=== PATIENT | female | born 1970 | race Caucasian/White ===

== ENCOUNTER → 2018-07-06 13:39 | Outpatient (CLI) | payer BC, SELFPAY ==
[2018-07-06 17:15] LABS: Chlamydia Trachomatis by PCR Negative (Negative); Neisserai gonorrhoeae by PCR Negative (Negative); Probe Check PASS; Sample Adequacy Control PASS; Specimen Processing Control PASS
[2018-07-11 11:13] LABS: HPV Reflexed? NOT INDICATED
== END ==
PROVIDERS: Visit Provider Obstetrics & Gynecology
DX: Z12.4 Encounter for screening for malignant neoplasm of cervix (principal); Z11.3 Encounter for screening for infections with a predominantly sexual mode of transmission
CPT/HCPCS: 87491; 87591; 87624; 88175; G0145

== ENCOUNTER → 2018-08-23 08:31 | Outpatient (CLI) | payer BC, SELFPAY ==
--- NOTE | 2018-08-23 08:38 | BI_ITS ---
MAMMOGRAPHY - BILATERAL SCREENING REASON FOR EXAM: Female, 48 years old. Routine annual screening examination. PERTINENT HISTORY: Non-contributory. TECHNIQUE: Digital bilateral breast jaswinder (3D mammographic acquisition) in the CC and MLO projections. 2-D mediolateral oblique (MLO) and craniocaudad (CC) views of both breasts were obtained. CAD: Full Field Digital Mammography with Computer Added Detection was performed. COMPARISON: Comparison is made with prior study dated September 21, 2016 and September 02, 2015. FINDINGS: Breast Composition: The breasts are heterogeneously dense, which may obscure small masses. There are no dominant masses or suspicious calcifications. Stable 6.5 mm lymph node in the left axilla. No other significant abnormalities are identified. There has been no significant change since the prior study. BI/SCREENING MAMM (CAD), BILAT IMPRESSION: Stable bilateral screening mammogram. Yearly follow-up mammogram recommended. (A) ASSESSMENT CATEGORY: BIRADS Category 2: Benign. A letter regarding these results will be sent to the patient by the facility within 30 days. Approximately 10% of breast cancers are not detected by mammography. A normal mammogram should not delay biopsy of a clinically suspicious abnormality. [id number] Electronically Signed: Sukhjinder Carey MD at 10:06 EST , Service support ,
== END ==
PROVIDERS: Referring Provider Obstetrics & Gynecology; Visit Provider Obstetrics & Gynecology
DX: Z12.31 Encounter for screening mammogram for malignant neoplasm of breast (principal)
CPT/HCPCS: 77063; 77067

== ENCOUNTER → 2018-10-05 16:13 | Outpatient (CLI) | payer BC, SELFPAY ==
[2018-10-05 17:50] LABS: Absolute Neutrophil Count 6.6 X10^3/uL (2.0-7.7); Basophil# 0.04 X10^3/uL; Basophil% 0.4 % (0-1); Eosinophil# 0.08 X10^3/uL; Eosinophils% 0.8 % (0-5); Hematocrit 41.1 % (37-47); Hemoglobin 13.6 g/dl (12.0-15.0); Lymphocyte % 22.8 % (19-41); Mean Corp Hgb Conc 33.1 g/gl (32-36); Mean Corpuscular Hgb 27.6 pg (27.0-32.0); Mean Corpuscular Volume 83.4 fL (81-99); Monocyte# 0.67 X10^3/uL; Neutrophil # 6.59 X10^3/uL (2.7-7.7); Neutrophil % 68.4 % (47-70); Platelet Count 361 K/mm3 (150-450); RBC Distribution Width CV 12.6 % (11.6-14.6); RBC Distribution Width SD 37.7 fl (35.1-43.9); Red Blood Count 4.93 M/mm3 (4.2-5.4); White Blood Count 9.6 K/mm3 (4.4-11.0)
[2018-10-05 18:10] LABS: Anion Gap 8 (5-15); BUN 12 mg/dL (7-18); BUN/Creat Ratio 14.7 RATIO (10-20); Chloride 106 mmol/L (98-107); Cholesterol 161 mg/dL (200); Creatinine, Serum 0.82 mg/dL (0.55-1.02); EST Glomerular Filtration Rate 80 mL/min (>60); Est Glom Filt Rate - Afr Amer 97 mL/min (>60); Glucose 91 mg/dL (74-106); High Density Lipoprotein 33 mg/dL; Potassium 4.2 mmol/L (3.5-5.1); Sodium Level 142 mmol/L (136-145); Thyroid Stim Hormone (TSH) 2.22 uIU/mL (0.358-3.74); Triglycerides 166 mg/dL; Very Low Density Lipoprotein 33 mg/dL (5-40)
[2018-10-05 18:36] LABS: Differential Indicated SCAN CRITERIA MET; POSITIVE COUNT NO; POSITIVE DIFFERENTIAL NO; POSITIVE MORPHOLOGY YES; Platelet Estimate ADEQUATE (ADEQ); Red Cell Morphology NORM C+C NORMAL (NORM C&C)
== END ==
PROVIDERS: Family Provider Family Medicine; PCP Family Medicine; Referring Provider Family Medicine; Visit Provider Family Medicine
DX: I10 Essential (primary) hypertension (principal); R53.83 Other fatigue
CPT/HCPCS: 36415; 80048; 80061; 84443; 85025

== ENCOUNTER → 2019-01-16 14:07 | Outpatient (CLI) | payer BC, SELFPAY ==
[2019-01-16 15:52] LABS: Anion Gap 5 (5-15); BUN 13 mg/dL (7-18); BUN/Creat Ratio 14.9 RATIO (10-20); Calcium,Total 9.9 mg/dL (8.5-10.1); Chloride 105 mmol/L (98-107); Creatinine, Serum 0.87 mg/dL (0.55-1.02); EST Glomerular Filtration Rate 74 mL/min (>60); Est Glom Filt Rate - Afr Amer 90 mL/min (>60); Glucose 116 mg/dL (74-106); Potassium 3.9 mmol/L (3.5-5.1); Sodium Level 138 mmol/L (136-145)
== END ==
PROVIDERS: Family Provider Family Medicine; PCP Family Medicine; Referring Provider Family Medicine; Visit Provider Family Medicine
DX: I10 Essential (primary) hypertension (principal)
CPT/HCPCS: 36415; 80048

== ENCOUNTER → 2019-08-13 08:28 | Outpatient (CLI) | payer BC, SELFPAY ==
[2019-08-13 10:30] LABS: Vitamin D,25 Hydroxy 22.2 ng/mL (29.95-100.01)
[2019-08-13 10:41] LABS: BUN 12 mg/dL (7-18); BUN/Creat Ratio 12.7 RATIO (10-20); Calcium,Total 10.3 mg/dL (8.5-10.1); Chloride 109 mmol/L (98-107); Cholesterol 214 mg/dL (200); Creatinine, Serum 0.94 mg/dL (0.55-1.02); EST Glomerular Filtration Rate 68 mL/min (>60); Est Glom Filt Rate - Afr Amer 82 mL/min (>60); Glucose 103 mg/dL (74-106); Potassium 4.3 mmol/L (3.5-5.1); Sodium Level 142 mmol/L (136-145); Triglycerides 116 mg/dL
[2019-08-13 10:42] LABS: Anion Gap 5 (5-15); High Density Lipoprotein 40 mg/dL; Thyroid Stim Hormone (TSH) 3.38 uIU/mL (0.358-3.74); Very Low Density Lipoprotein 23 mg/dL (5-40)
== END ==
PROVIDERS: PCP Family Medicine; Visit Provider Family Medicine
DX: Z00.00 Encounter for general adult medical examination without abnormal findings (principal)
CPT/HCPCS: 36415; 80048; 80061; 82306; 84443

== ENCOUNTER → 2020-09-12 09:08 | Outpatient (CLI) | payer OTHER, SELFPAY ==
[2020-09-12 10:48] LABS: Vitamin D,25 Hydroxy 35.3 ng/mL
[2020-09-12 11:00] LABS: Anion Gap 5 (5-15); BUN 12 mg/dL (7-18); Calcium,Total 9.7 mg/dL (8.5-10.1); Chloride 110 mmol/L (98-107); Cholesterol 217 mg/dL (200); Creatinine, Serum 1.09 mg/dL (0.55-1.02); EST Glomerular Filtration Rate 57 mL/min (>60); Est Glom Filt Rate - Afr Amer 69 mL/min (>60); Free T3 2.7 pg/mL (2.18-3.98); Glucose 103 mg/dL (74-106); High Density Lipoprotein 43 mg/dL; Potassium 4.4 mmol/L (3.5-5.1); Sodium Level 140 mmol/L (136-145); T4 Total, Thyroxin 6.3 ug/dL (4.8-13.9); Thyroid Stim Hormone (TSH) 3.09 uIU/mL (0.358-3.74); Triglycerides 129 mg/dL; Very Low Density Lipoprotein 26 mg/dL (5-40)
== END ==
PROVIDERS: PCP Family Medicine; Referring Provider Family Medicine; Visit Provider Family Medicine
DX: Z00.00 Encounter for general adult medical examination without abnormal findings (principal); E56.9 Vitamin deficiency, unspecified; L65.9 Nonscarring hair loss, unspecified
CPT/HCPCS: 36415; 80048; 80061; 82306; 84436; 84443; 84481

== ENCOUNTER → 2020-09-15 14:45 | Outpatient (CLI) | payer OTHER, SELFPAY ==
[2020-09-21 20:40] LABS: HPV Reflexed? NOT INDICATED
== END ==
PROVIDERS: PCP Family Medicine; Visit Provider Obstetrics & Gynecology
DX: Z12.4 Encounter for screening for malignant neoplasm of cervix (principal)
CPT/HCPCS: 88175; G0145

== ENCOUNTER → 2020-09-17 10:41 | Outpatient (CLI) | payer OTHER, SELFPAY ==
--- NOTE | 2020-09-17 10:46 | BI_ITS ---
MAMMOGRAPHY - BILATERAL SCREENING REASON FOR EXAM: Female, 50 years old. Routine annual screening examination. PERTINENT HISTORY: Mother with breast cancer. TECHNIQUE: Digital bilateral breast brayan (3D mammographic acquisition) in the CC and MLO projections. 2-D mediolateral oblique (MLO) and craniocaudad (CC) views of both breasts were obtained. CAD: Full Field Digital Mammography with Computer Added Detection was performed. COMPARISON: Comparison is made with prior study 06/22/2019 and 09/21/2016. FINDINGS: Breast Composition: The breasts are heterogeneously dense, which may obscure small masses. There are no dominant masses or suspicious calcifications. Stable 6.5 mm benign appearing lymph node in the left axilla. No other significant abnormalities are identified. There has been no significant change since the prior study. BI/SCRN MAMM (CAD)W/BRAYAN BILAT IMPRESSION: Stable bilateral screening mammogram. Yearly follow-up mammogram recommended. (A) ASSESSMENT CATEGORY: BIRADS Category 2: Benign. A letter regarding these results will be sent to the patient by the facility within 30 days. Approximately 10% of breast cancers are not detected by mammography. A normal mammogram should not delay biopsy of a clinically suspicious abnormality. [id number] Electronically Signed: Sukhjinder Carey MD at 12:47 EDT , Service support ,
== END ==
PROVIDERS: PCP Family Medicine; Referring Provider Family Medicine; Visit Provider Family Medicine
DX: Z12.31 Encounter for screening mammogram for malignant neoplasm of breast (principal)
CPT/HCPCS: 77063; 77067

== ENCOUNTER → 2020-12-30 12:20 | Outpatient (CLI) | payer OTHER, SELFPAY ==
--- NOTE | 2020-12-30 12:23 | RAD_ITS ---
STUDY: X-RAY - LUMBOSACRAL SPINE REASON FOR EXAM: Female, 50 years old. Low back pain TECHNIQUE: 7 view(s) of the lumbosacral spine were obtained. COMPARISON: None FINDINGS: Normal lumbar lordosis. There is a mild dextroscoliosis of the lumbar spine. There is normal alignment of the vertebrae. Normal vertebral bodies and endplates. Mild disc space narrowing throughout the lumbar spine. Normal bilateral sacral ala, sacroiliac joints, and visualized sacrum. Normal visualized soft tissue structures. No instability on the flexion or extension views RAD/L/S Spine w Bend Min 6 Vw IMPRESSION: Mild degenerative changes with a dextroscoliosis. No demonstrated fracture or instability. Electronically Signed: Colby Zapata MD at 17:14 EDT , Service support ,
== END ==
PROVIDERS: PCP Family Medicine; Referring Provider Nurse Practitioner Family; Visit Provider Nurse Practitioner Family
DX: M54.5 Low back pain (principal)
CPT/HCPCS: 72114

== ENCOUNTER → 2022-07-26 | Outpatient (CLI) | payer BC, SELFPAY ==
--- NOTE | 2022-07-26 15:55 | BI_ITS ---
MAMMOGRAPHY - BILATERAL SCREENING REASON FOR EXAM: Female, 52 years old. Routine annual screening examination. PERTINENT HISTORY: Mother with breast cancer. TECHNIQUE: Digital bilateral breast brayan (3D mammographic acquisition) in the CC and MLO projections. 2-D mediolateral oblique (MLO) and craniocaudad (CC) views of both breasts were obtained. CAD: Full Field Digital Mammography with Computer Added Detection was performed. COMPARISON: Comparison is made with prior study dated 09/17/2020 and 08/23/2018. FINDINGS: Breast Composition: The breasts are heterogeneously dense, which may obscure small masses. There are no dominant masses or suspicious calcifications. Stable 6.5 mm benign-appearing lymph node in the left axilla. No other significant abnormalities are identified. There has been no significant change since the prior study. BI/SCRN MAMM (CAD)W/BRAYAN BILAT IMPRESSION: Stable bilateral screening mammogram. Yearly follow-up mammogram recommended. (A) ASSESSMENT CATEGORY: BIRADS Category 2: Benign. A letter regarding these results will be sent to the patient by the facility within 30 days. Approximately 10% of breast cancers are not detected by mammography. A normal mammogram should not delay biopsy of a clinically suspicious abnormality. [id number] Electronically Signed: Sukhjinder Carey MD at 7:54 EST ,
== END | disposition home or self-care (01) ==
LOC: OPBI 15:53
PROVIDERS: PCP Family Medicine; Visit Provider Student in an Organized Health Care Education/Training Program
DX: Z12.31 Encounter for screening mammogram for malignant neoplasm of breast (principal); Z80.3 Family history of malignant neoplasm of breast
CPT/HCPCS: 77063; 77067

== ENCOUNTER 2022-09-26 16:34 | Outpatient (CLI) | payer BC, SELFPAY ==
[2022-09-26 18:41] LABS: Anion Gap 8 (5-15); BUN 14 mg/dL (7-18); BUN/Creat Ratio 16.1 RATIO (10-20); Calcium,Total 10.4 mg/dL (8.5-10.1); Chloride 104 mmol/L (98-107); Cholesterol 203 mg/dL (200); Creatinine, Serum 0.87 mg/dL (0.55-1.02); EST Glomerular Filtration Rate 73 mL/min (>60); Est Glom Filt Rate - Afr Amer 89 mL/min (>60); Glucose 99 mg/dL (74-106); High Density Lipoprotein 37 mg/dL; Potassium 3.7 mmol/L (3.5-5.1); Sodium Level 136 mmol/L (136-145); Triglycerides 194 mg/dL; Very Low Density Lipoprotein 39 mg/dL (5-40)
== END 2022-09-26 23:59 | disposition home or self-care (01) ==
LOC: MFPLAB 16:36
PROVIDERS: PCP Family Medicine; Visit Provider Family Medicine
DX: I10 Essential (primary) hypertension (principal)
CPT/HCPCS: 36415; 80048; 80061

== ENCOUNTER → 2023-09-12 | Outpatient (CLI) | payer BC, SELFPAY ==
[2023-09-12 16:24] LABS: Estradiol 29.7 pg/mL
--- OUTSIDE RECORDS SUMMARY | 2023-09-13 02:06 | XMS RPT_ITS | CCD ---
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 Role Phone Lilli Gilliland DO Primary Care Provider Problems Problem Classification Problem Date Documented Da te Episodic/Chronic Genitourinary symptoms and ill-defined conditions (1 source) Genuine stress incontinence; Translations: [Stress incontinence (female) (male)] Chronic Encounters Encounter Date Encounter Type Care Provider Facility Start: 07-14-2022 Transcribe Orders Lilli Gilliland DO Work Phone: [facility] Plan of Treatment Date Care Activity Detail Author Start: 03-03-2023 Influenza vaccination Influenz a Vaccine (Season Ended) [facility] Start: 2022 Zoster Vaccines (1 of 2) Zoster Vacc susan (1 of 2) [facility] Start: 2012 Screening for malign ant neoplasm of breast Mammogram [facility] Start: 2002 Screening for malign ant neoplasm of cervix [facility] Start: 1993 Screening for malign ant neoplasm of cervix Pap Smear [facility] Start: 1991 DTaP/Tdap/Td Vaccine s (1 - Tdap) DTaP/Tdap/Td Vaccines (1 - Tdap) [facility] Start: 1990 Hepatitis C screening Hepatitis C Sc reening [facility] Start: 1973 MMR Vaccines (1 of 1 - Standard series) MMR Vaccines (1 of 1 - Standard series) [facility] Start: 1972 COVID-19 Vaccine (#1) COVID-19 Vacci ne (#1) [facility] Start: 1972 Hepatitis B Vaccines (1 of 3 - 3-dose series) Hepatitis B Vaccines (1 of 3 - 3-dose series) [facility] Start: 1972 HIV screening HIV Screening [facility] Start: 1972 Screening for malign ant neoplasm of colon [facility] Health Payers Date Payer Category Payer Unknown RAGHAV DOUGHERTY S RAGHAV LAUREANO [id number] 2021-Present [address] [place] [address] Commercial [id number] Social History Date Type Detail Facility Tobacco smoking stat [facility] Tobacco smoking consumption unknown [facility] Start: 1970 Sex Assigned At Not on file [facility] Clinical Note 01-22-2021 Note Date & Type Note Facility 01-22-2021 Note Patient Outreach (IN [facility]) MONY HUBER ([id number]) 1970 F Date Time Provider Department 01/22/21 RASHEL MOROCHO During your visit today, we recorded the following information about you: Allergies As of Date: 01/22/2021 (No Known Allergies) Date Reviewed: 10/02/2018 Reviewed by: Aniya Brewer Cma - Fully Assessed Visit Diagnosis:Encounter for screening mammogram for breast cancer [Z12.31] Order(s):[facility] SCREENING [[id number]] Order #: [id number] FUTURE Prescriptions as of 01/25/2021 - sodium chloride-aloe vera (AYR SALINE) topical nasal gel 1 application by INTRANASAL route as needed. - [place]-3 Fatty Acids (FISH OIL) 500 mg cap Take 1 capsule by mouth once daily. - Zinc Gluconate 100 mg tab Takes 3 pills of 100mg daily - ascorbic acid, vitamin C, (VITAMIN C) 500 mg tablet Take 1 tablet by mouth once daily. - buPROPion (WELLBUTRIN) 75 mg tablet Take 1 tablet by mouth twice daily. Problem List As Of Date: 01/22/2021 (None) Encounter Status:Closed by RACHID ESPINOZA on 01/25/21 [facility] Evaluation note Note Date & Type Note Facility documented in this encounter [facility] Reason for referral (narrative) Consultation (Routine) - Closed Note Date & Type Note Facility Referral ID Status Reason Start Date Expiration Date V isits Requested Visits Authorized [id number] Closed Specialty Services Required 07/14/2022 01/10/2023 1 1 [facility] Summary Purpose Family History No Family History Records Found Advance Directives No Advanced Directives Records Found Additional Source Comments INFORMATION SOURCE (unrecogn ized section and content) Care Teams (unrecognized sec tion and content) FOR RECORDS PERTAINING TO PATIENTS WHO ARE OR HAVE BEEN ENROLLED IN A CHEMICAL DEPENDENCY/SUBSTANCEABUSE PROGRAM, SOME INFORMATION MAY BE OMITTED. This clinical summary was aggregated from multiple sources. Caution should be exercised in using it in the provision of clinical care. This summary normalizes information from multiple sources, and as a consequence, information in this document may materially change the coding, format and clinical context of patient data. In addition, data may be omitted in some cases. CLINICAL DECISIONS SHOULD BE BASED ON THE PRIMARY CLINICAL RECORDS. [facility] [employer] [facility]. provides no warranty or guarantee of the accuracy or completeness of information in this document.
[2023-09-18 09:07] LABS: HPV APTIMA, High Risk Negative (Negative)
== END | disposition home or self-care (01) ==
PROVIDERS: PCP Family Medicine; Referring Provider Nurse Practitioner Women's Health; Visit Provider Nurse Practitioner Women's Health
DX: Z12.4 Encounter for screening for malignant neoplasm of cervix (principal); N91.2 Amenorrhea, unspecified
CPT/HCPCS: 36415; 82670; 83001; 87624; 88175; G0145

== ENCOUNTER → 2023-09-20 | Outpatient (CLI) | payer BC, SELFPAY ==
--- NOTE | 2023-09-20 14:10 | BI_ITS ---
MAMMOGRAPHY - BILATERAL SCREENING REASON FOR EXAM: Female, 53 years old. Routine annual screening examination. PERTINENT HISTORY: Mother with breast cancer. TECHNIQUE: Digital bilateral breast brayan (3D mammographic acquisition) in the CC and MLO projections. 2-D mediolateral oblique (MLO) and craniocaudad (CC) views of both breasts were obtained. CAD: Full Field Digital Mammography with Computer Added Detection was performed. COMPARISON: Comparison is made with prior study dated July 26, 2022 and September 17, 2020. FINDINGS: Breast Composition: The breasts are heterogeneously dense, which may obscure small masses. There are no dominant masses or suspicious calcifications. Stable bilateral benign-appearing axillary lymph nodes. No other significant abnormalities are identified. There has been no significant change since the prior study. BI/SCRN MAMM (CAD)W/BRAYAN BILAT IMPRESSION: Stable bilateral screening mammogram. Yearly follow-up mammogram recommended. (A) ASSESSMENT CATEGORY: BIRADS Category 2: Benign. A letter regarding these results will be sent to the patient by the facility within 30 days. Approximately 10% of breast cancers are not detected by mammography. A normal mammogram should not delay biopsy of a clinically suspicious abnormality. [id number] Electronically Signed: Sukhjinder Carey MD at 15:26 EDT ,
== END | disposition home or self-care (01) ==
LOC: OPBI 14:10
PROVIDERS: PCP Family Medicine; Referring Provider Nurse Practitioner Women's Health; Visit Provider Nurse Practitioner Women's Health
DX: Z12.31 Encounter for screening mammogram for malignant neoplasm of breast (principal); Z80.3 Family history of malignant neoplasm of breast
CPT/HCPCS: 77063; 77067

== ENCOUNTER → 2023-10-03 | Outpatient (CLI) | payer BC, SELFPAY | END | disposition home or self-care (01) | LOC: LAB 11:57 | PROVIDERS: PCP Family Medicine; Visit Provider Nurse Practitioner Women's Health | DX: Z15.01 Genetic susceptibility to malignant neoplasm of breast (principal); Z80.3 Family history of malignant neoplasm of breast | CPT/HCPCS: 36415 ==

== ENCOUNTER 2023-11-10 07:58 | Day surgery (SDC) | payer BC, SELFPAY ==
[2023-11-10 08:25] VITALS: BP 150/84; PULSE 90; RESP 18; TEMP 36.8; O2SAT 95; BMI 37.7
[2023-11-10] MEDS: Lactated Ringers 1,000 ML 15 ML IV (08:38)
--- NOTE | 2023-11-10 09:00 | H&P.OPEN ---
HPI - General HPI Narrative MADELIN VAZ, is a 53 F who presents for screening colonoscopy. Patient has never had a colonoscopy in the past. She denies abdominal pain or blood in stool. She has no family history of colon cancer. [facility] Medical History (Updated 11/09/23 @ 10:37 by Eloisa Weeks) Anxiety Arthritis Back pain Depression Heartburn History of edema History of irregular heartbeat HTN (hypertension) Injury of head and neck Leg cramps Melanoma MVP (mitral valve prolapse) Non-smoker Post-menopausal Shortness of breath on exertion Wears glasses Home Medications ascorbic acid (vitamin C) 1,000 mg capsule 1 g PO DAILY 09/12/23 [History Last Taken 11/09/23] lisinopril 10 mg tablet 10 mg PO DAILY 09/12/23 [History Last Taken 11/10/23] loratadine 10 mg tablet (Claritin) 10 mg PO DAILY 09/12/23 [History Last Taken 11/09/23] omega 4-xcm-yre-fish oil 300 mg-1,000 mg capsule (Fish Oil) 4 cap PO DAILY 09/12/23 [History Last Taken 11/08/23] zinc gluconate 30 mg tablet 30 mg PO DAILY 09/18/23 [History Last Taken 11/09/23] cholecalciferol (vitamin D3) 125 mcg (5,000 unit) tablet (Vitamin D3) 250 mcg PO DAILY 11/09/23 [History Last Taken 11/09/23] venlafaxine 75 mg capsule,extended release 24 hr (Effexor XR) 75 mg PO QHS 11/09/23 [History Last Taken 11/09/23] Allergy/AdvReac Type Severity Reaction Status Date / Time No Known Allergies Allergy Verified 11/10/23 08:21 Family History Mother Breast cancer Brother Cancer Pancreatic Uncle Cancer Maternal- Brain Cancer Uncle Cancer Maternal- Unsure of type Aunt Cancer Brain- Paternal Surgical History (Updated 11/09/23 @ 10:37 by Eloisa Weeks) History of Judge colposuspension History of umbilical hernia repair Hx of vaginal surgery Social History household members: spouse number of children: 2 current occupational status: unemployed Smoking Status: Never smoker alcohol intake: never substance use type: does not use seatbelt use: always do you feel safe at home: Yes additional social history: - [employer] [place]- Re[employer] Past Medical/Surgical History Planned Operation Planned Operative Procedure/s: CSCOPE OA Previous Hospitalizations/Surgeries HX Hospitalizations: No Any Problems With Anesthesia: No You/Your Family Experience Fever (Hyperthermia) With Anes: No Cholinesterase deficiency: No Cardiovascular Hx of Irregular Heartbeat and/or Afib: No Hx Heart Attack: No Hx Congestive Heart Failure: No Hx Hypertension: Yes (CONTROLLED WITH MED) Hx Internal Defibrillator: No Hx Pacemaker: No Respiratory Hx Chronic Obstructive Pulmonary Disease (COPD): No Hx Asthma: No Hx Emphysema: No Hx Sleep Apnea: No Hx Respiratory Tract Infection/Cold (presently): No (STUFFY NOSE) Do You Snore Loudly (louder than talking or can be heard): No Do You Often Feel Tired/ Fatigued/ Sleepy Dring Daytime?: Yes Has Anyone Observed You Stop Breathing During Sleep?: No Result (for STOP score): Positive Smoking Status: Never smoker Gastrointestinal Hx Ulcer: No Neurological Hx Seizures: No Hx Multiple Sclerosis: No Hx Parkinson's Disease: No Hx Head/Neck Injury: No Hx Headaches: Yes Hx Back Injury/Pain: Yes Does patient have nerve stimulator: No Reproduction : No Psycho/Social Hx Anxiety: No Hx Depression: No Miscellaneous Recent Exposure to Contagious Disease: No Allergies No Known Allergies Allergy (Verified 11/10/23 08:21) Discharge Is Pt Admitted From a Alf, or a Mcfp: No After D/C, Where Do you Plan to Go: Return Home Vital Signs Vital Signs Vital Signs: 11/10/23 08:25 11/10/23 08:25 Temperature 98.2 F Temperature Source Temporal Pulse Rate 90 Respiratory Rate 18 Respiratory Pattern Normal Blood Pressure 150/84 H Blood Pressure Mean 106 Blood Pressure Source Monitor Blood Pressure Position Semi-Fowlers Blood Pressure Location Left Arm Pulse Ox 95 Oxygen Delivery Method Room Air Weight Weight: 240 lb 15.444 oz Body Mass Index (BMI) 37.7 Physical Exam Const alert and oriented x3 HEENT normocephalic Eyes PERRL Resp normal respiratory effort and normal air movement Cardio regular rate and regular rhythm GI soft to palpation, non-tender and non-distended Extremity normal to inspection Assessment & Plan Assessment/Plan (1) Encounter for screening for malignant neoplasm of colon: PLAN: I explained endoscopy in detail to the patient. I explained the risks including but not limited to stroke or heart attack with anesthesia, perforation of the GI tract, bleeding, infection. I explained that any of these could necessitate further emergency surgery. The patient understands and all questions were answered sufficiently. The patient wishes to proceed with procedure. Judah Bernard MD Pager: [facility] [address] [place] [address] [address] [place] [address] Office: Surgery Risks - Colonoscopy Risks Include but are not Limited To: Risks include but are not limited to: Bleeding, perforation requiring further surgery, inability to complete colonoscopy requiring barium enema.
[2023-11-10 09:37] VITALS: BP 135/76; BP 150/84; PULSE 87; RESP 16; TEMP 36.5; O2SAT 93
[2023-11-10 09:40] VITALS: BP 141/77; BP 150/84; PULSE 86; RESP 16; O2SAT 92
[2023-11-10 09:45] VITALS: BP 130/81; BP 150/84; PULSE 86; RESP 16; O2SAT 92
--- NOTE | 2023-11-10 09:54 | OP.CCLET_ITS ---
11/10/2023 Rohit Mariee MD [address] [place] [address] Re : Colonoscopy procedure for Mony Huber Dear Dr. Mariee This procedure was performed on Friday, November 10, 2023. My impressions and recommendations are as follows: Impressions : - The entire examined colon is normal on direct and retroflexion views. - No specimens collected. Recommendations : - Discharge patient to home. - Resume previous diet. - Continue present medications. - Repeat colonoscopy in 10 years for screening purposes. My findings are described in the full procedure note, which is enclosed. If I can be of further assistance, please feel free to contact me at Doctor phone number(s): , Work: . Sincerely, Judah Bernard MD 11/10/2023 9:54:06 AM This report has been signed electronically.
--- NOTE | 2023-11-10 09:54 | OP.COLON_ITS ---
Patient Name: Mony Huber Procedure Date: 11/10/2023 9:03 AM Date of : 1970 Age: 53 Procedure: Colonoscopy Indications: Screening for colorectal malignant neoplasm Providers: Judah Bernard MD Referring MD: Rohit Mariee MD Medicines: Propofol per Anesthesia Patient Profile: This is a 53 year old female. Refer to note in patient chart for documentation of history and physical. Last Colonoscopy: none. The patient's first colonoscopy is today. Complications: No immediate complications. Procedure: Pre-Anesthesia Assessment: - Prior to the procedure, a History and Physical was performed, and patient medications and allergies were reviewed. The patient's tolerance of previous anesthesia was also reviewed. The risks and benefits of the procedure and the sedation options and risks were discussed with the patient. All questions were answered, and informed consent was obtained. Prior Anticoagulants: The patient has taken no anticoagulant or antiplatelet agents. After reviewing the risks and benefits, the patient was deemed in satisfactory condition to undergo the procedure. After I obtained informed consent, the scope was passed under direct vision. Throughout the procedure, the patient's blood pressure, pulse, and oxygen saturations were monitored continuously. The Colonoscope was introduced through the anus and advanced to the cecum, identified by appendiceal orifice and ileocecal valve. The colonoscopy was performed without difficulty. The patient tolerated the procedure well. The quality of the bowel preparation was good. The ileocecal valve, appendiceal orifice, and rectum were photographed. Scope In: 9:19:42 AM Scope Withdrawal Time 0 hours 7 minutes 12 seconds Scope Out: 9:33:51 AM Total Procedure Duration Time 0 hours 14 minutes 9 seconds Findings: The entire examined colon appeared normal on direct and retroflexion views. Impression: - The entire examined colon is normal on direct and retroflexion views. - No specimens collected. Recommendation: - Discharge patient to home. - Resume previous diet. - Continue present medications. - Repeat colonoscopy in 10 years for screening purposes. Procedure Code(s): --- Professional --- 83172, Colonoscopy, flexible; diagnostic, including collection of specimen(s) by brushing or washing, when performed (separate procedure) Diagnosis Code(s): --- Professional --- Z12.11, Encounter for screening for malignant neoplasm of colon CPT copyright 2021 [employer]. All rights reserved. The codes documented in this report are preliminary and upon remote inpatient coder review may be revised to meet current compliance requirements. Judah Bernard MD 11/10/2023 9:54:06 AM This report has been signed electronically. Number of Addenda: 0 Note Initiated On: 11/10/2023 9:03 AM
[2023-11-10 10:00] VITALS: BP 110/74; BP 150/84; PULSE 86; RESP 16; TEMP 36.5; O2SAT 94
[2023-11-10 10:15] VITALS: BP 150/84
== END 2023-11-10 10:38 | disposition home or self-care (01) ==
LOC: EN 07:58 → AC 07:59
PROVIDERS: PCP Family Medicine; Referring Provider Family Medicine; Visit Provider Surgery
PROC: 0DJD8ZZ Inspection of Lower Intestinal Tract, Via Natural or Artificial Opening Endoscopic (ICD-10-PCS; CPT 45378; principal; 2023-11-10 09:10)
DX: Z12.11 Encounter for screening for malignant neoplasm of colon (principal); I10 Essential (primary) hypertension; Z79.899 Other long term (current) drug therapy
CPT/HCPCS: 45378; J7120; J2405

== ENCOUNTER → 2024-10-03 | Outpatient (CLI) | payer BC, SELFPAY ==
--- NOTE | 2024-10-03 09:18 | BI_ITS ---
EXAM: SCRN MAMM (CAD)W/BRAYAN BILAT DATE: 10/03/2024 CLINICAL HISTORY: F, Age 54 y/o , SCREENING MAMMOGRAM FOR BREAST CANCER Mother with breast cancer. BREAST CANCER RISK ASSESSMENT: Not assessed TECHNIQUE: Bilateral screening digital breast tomosynthesis with 2D and 3D images. Computer aided detection. COMPARISON: Prior exam(s) dated September 20, 2023.. FINDINGS: TISSUE DENSITY: The breast tissue is heterogenously dense, which may obscure small masses. Bilateral Breast Mammographic Findings: No significant masses, calcifications or other abnormalities are identified. Stable benign-appearing axillary lymph nodes. BI/SCRN MAMM (CAD)W/BRAYAN BILAT IMPRESSION: Right Breast: BIRADS 1 NEGATIVE. Left Breast: BIRADS 1 NEGATIVE. OVERALL FINAL ASSESSMENT: BIRADS 1 NEGATIVE RECOMMENDATION: Routine annual follow-up in 1 Year A letter with findings and recommendations will be mailed to the patient. Reading Location: [place] [address]
== END | disposition home or self-care (01) ==
LOC: OPBI 09:16
PROVIDERS: PCP Family Medicine; Referring Provider Nurse Practitioner Women's Health; Visit Provider Nurse Practitioner Women's Health
DX: Z12.31 Encounter for screening mammogram for malignant neoplasm of breast (principal)
CPT/HCPCS: 77063; 77067

== ENCOUNTER → 2024-11-12 | Outpatient (CLI) | payer BC, SELFPAY ==
--- NOTE | 2024-11-12 15:16 | US_ITS ---
PROCEDURE: PELVIC (NON ) 11/12/2024 REASON FOR EXAM: UTI,POSTMENO BLEEDING TECHNIQUE: Transabdominal pelvic ultrasound COMPARISON: None. FINDINGS: Measurements: Uterus: 7.1 x 4.0 x 2.8 cm with a volume of 41.7 mL Endometrial Thickness: 3.8 mm. Right Ovary: 2.2 x 1.9 x 1.2 cm with a volume of 2.5 mL. Left Ovary: 2.0 x 2.1 x 1.3 cm with a volume of 3.0 mL. Uterus: Anteverted. No focal abnormality is evident. Endometrium: No endometrial abnormality is seen. Right ovary: No abnormality noted. Normal arterial and venous blood flow seen. Left ovary: No abnormality noted. Normal arterial and venous blood flow seen. Other: The urinary bladder is incompletely filled, with estimated volume of 85 mL. No abnormality was identified. US/Pelvic (Non ) IMPRESSION: No significant abnormality is seen. Reading Location: [place] [address]
--- NOTE | 2024-11-12 15:17 | US_ITS ---
PROCEDURE: KIDNEY AND BLADDER 11/12/2024 REASON FOR EXAM: UTI,POSTMENO BLEEDING TECHNIQUE: Bilateral renal ultrasound. COMPARISON: None FINDINGS: RIGHT Kidney Size: 11.7 cm x 5.8 cm x 6 cm Volume: 215.7 mL Cortical Thickness (if discernible): 1.4 cm (>6mm is normal) There is a 1.5 cm x 1.4 cm x 1.2 cm cyst in the upper pole. Nonobstructive 4 mm x 6 mm x 3 mm intrarenal calculus. LEFT Kidney Size: 11.7 cm x 5 cm x 1 6 cm Volume: 199 mL Cortical Thickness (if discernible): 1.5 cm (>6mm is normal) There is a 6 mm x 6 mm x 5 mm nonobstructive calculus in the kidney. US/Kidney and Bladder IMPRESSION: Small nonobstructive bilateral intrarenal calculi. Right renal cyst. Reading Location: [id number]
== END | disposition home or self-care (01) ==
LOC: US 15:15
PROVIDERS: PCP Family Medicine; Referring Provider Urology; Visit Provider Urology
DX: N39.0 Urinary tract infection, site not specified (principal); N95.0 Postmenopausal bleeding
CPT/HCPCS: 76770; 76856

== ENCOUNTER → 2024-11-21 | Outpatient (CLI) | payer BC, SELFPAY ==
[2024-11-21 16:03] LABS: AST(SGOT) 42 U/L (<=31); Alanine Aminotransfer ALT/SGPT 62 U/L (<=34); Albumin, Serum 4.2 g/dL (3.5-5.0); Alkaline Phosphatase 120 U/L (35-104); Anion Gap 17 (5-15); BUN 9 mg/dL (4-19); BUN/Creat Ratio 12.1 RATIO (10-20); Calcium,Total 9.7 mg/dL (7.6-11.0); Carbon Dioxide 17.6 mmol/L (21.0-32.0); Chloride 102 mmol/L (98-108); Cholesterol 237 mg/dL (<=200); Creatinine, Serum 0.74 mg/dL (0.70-1.20); EST Glomerular Filtration Rate 97 (>60); Globulin 1.1 g/dL (2.2-4.2); Glucose 288 mg/dL (70-99); High Density Lipoprotein 33 mg/dL; Low Density Lipoprotein Calc. 169 mg/dL; Potassium 4.1 mmol/L (3.3-5.1); Protein, Total 5.3 g/dL (5.9-8.4); Sodium Level 137 mmol/L (133-145); Total Bilirubin 0.59 mg/dL (0.00-1.30); Triglycerides 173 mg/dL; Very Low Density Lipoprotein 35 mg/dL (5-40); cholesterol:hdl ratio screen 7.14
== END | disposition home or self-care (01) ==
LOC: MTLAB 11:17
PROVIDERS: PCP Family Medicine; Referring Provider Family Medicine; Visit Provider Family Medicine
DX: I10 Essential (primary) hypertension (principal)
CPT/HCPCS: 36415; 80053; 80061

== ENCOUNTER → 2024-11-22 | Outpatient (CLI) | payer BC, SELFPAY ==
--- NOTE | 2024-11-22 17:08 | CT_ITS ---
PROCEDURE: ABDOMEN/PELVIS WITHOUT CONT 11/22/2024 REASON FOR EXAM: KIDNEY STONES TECHNIQUE: Abdomen and pelvis CT without intravenous contrast. Noncontrast technique limits evaluation of the abdominal and pelvic viscera. Coronal and Sagittal reconstruction series were provided. One or more dose reduction techniques were used (e.g., Automated exposure control, adjustment of the mA and/or kV according to patient size, use of iterative reconstruction technique). PATIENT PREPARATION: Per protocol ORAL CONTRAST TYPE: None. FINDINGS: The lung bases are clear. Hepatic steatosis with focal fatty sparing along the gallbladder fossa. The gallbladder appears within limits. The adrenal glands, pancreas and spleen appear within limits on noncontrast imaging. No renal stones or ureteral or bladder stone identified. No hydronephrosis. Bilateral symmetric perinephric stranding is nonspecific. Small right renal cortical cyst axial 87, incidental. Abdominal aorta appears within limits on noncontrast imaging. No adenopathy. No bowel dilation or free air. Normal caliber appendix without secondary signs. A few noninflamed colonic diverticula. The ovaries, uterus and bladder appear within limits on noncontrast imaging. No free fluid. Small fat containing right inguinal hernia without stranding. Lower lumbar multilevel bilateral facet degenerative changes. CT/Abdomen/Pelvis without Cont IMPRESSION: No renal stones or ureteral or bladder stone identified. No hydronephrosis. Hepatic steatosis with focal fatty sparing along the gallbladder fossa. Reading Location: [id number]
== END | disposition home or self-care (01) ==
LOC: CT 17:06
PROVIDERS: PCP Family Medicine; Referring Provider Urology; Visit Provider Urology
DX: N20.0 Calculus of kidney (principal)
CPT/HCPCS: 74176

== ENCOUNTER → 2024-11-27 | Outpatient (CLI) | payer BC, SELFPAY ==
[2024-11-28 08:08] LABS: HEPATITIS B SURFACE AG Negative (Negative); Hep C Antibodies Non Reactive (Non Reactive); Hepatitis A IgM Antibody Negative (Negative); Hepatitis B Core AB IgM Negative (Negative)
== END | disposition home or self-care (01) ==
LOC: MFPLAB 11:12
PROVIDERS: PCP Family Medicine; Referring Provider Family Medicine; Visit Provider Family Medicine
DX: R74.01 Elevation of levels of liver transaminase levels (principal); R73.09 Other abnormal glucose
CPT/HCPCS: 36415; 80074; 83036

== ENCOUNTER → 2025-02-24 | Outpatient (CLI) | payer BC, SELFPAY ==
[2025-02-24 16:00] LABS: AST(SGOT) 41 U/L (<=31); Alanine Aminotransfer ALT/SGPT 58 U/L (<=34); Albumin, Serum 4.6 g/dL (3.5-5.0); Alkaline Phosphatase 64 U/L (35-104); Anion Gap 12 (5-15); BUN 11 mg/dL (4-19); BUN/Creat Ratio 13.7 RATIO (10-20); Calcium,Total 10.9 mg/dL (7.6-11.0); Carbon Dioxide 24.6 mmol/L (21.0-32.0); Chloride 104 mmol/L (98-108); Cholesterol 159 mg/dL (<=200); Globulin 2.2 g/dL (2.2-4.2); Glucose 108 mg/dL (70-99); Low Density Lipoprotein Calc. 99 mg/dL; Potassium 4.2 mmol/L (3.3-5.1); Triglycerides 86 mg/dL; Very Low Density Lipoprotein 17 mg/dL (5-40); cholesterol:hdl ratio screen 3.67
== END | disposition home or self-care (01) ==
LOC: MFPLAB 10:52
PROVIDERS: PCP Family Medicine; Referring Provider Family Medicine; Visit Provider Family Medicine
DX: E11.9 Type 2 diabetes mellitus without complications (principal)
CPT/HCPCS: 36415; 80053; 80061